=== PATIENT | male | born 1950 | race Caucasian/White ===

== ENCOUNTER 2023-11-30 16:02 | Emergency (ER) | payer OTHER ==
[2023-11-30] MEDS ORDERED: Ipratropium/Albuterol 3 ML NEB ONE ×2 (16:30→20:29)
[2023-11-30 16:53] LABS: #Basophils 0.1 thou/uL (0.0-0.2); #Eosinphils 0.2 thou/uL (0.0-0.7); #Lymphocytes 5.2 thou/uL (1.20-3.40); #Monocytes 0.9 thou/uL (0.11-0.59); #Neutrophils 7.6 thou/uL (1.40-6.50); %Basophils 0.4 % (0.0-1.0); %Eosinophils 1.5 % (0.0-10.0); %Lymphocytes 37.4 % (21.0-51.0); %Monocytes 6.2 % (0.0-10.0); %Neutrophils 54.6 % (42.0-75.0); Hematocrit 42.6 % (42.0-52.0); Hemoglobin 13.6 g/dL (14.0-18.0); Mean Corpuscular HGB CONC 31.9 g/dL (32.0-36.0); Mean Corpuscular Hemoglobin 30.8 pg (27.0-31.0); Mean Corpuscular Volume 96.4 fl (78.0-98.0); Mean Platelet Volume 6.4 fL (7.4-10.4); Platelet Count 190 10x3/uL (130-400); RBC Distribution Width 11.5 % (11.5-14.5); Red Blood Cell (RBC) Count 4.42 mill/uL (4.70-6.10); White Blood Cell (WBC) Count 13.9 10x3/uL (4.8-10.8)
[2023-11-30 17:02] LABS: Bilirubin Negative (Negative); Blood, Urine Negative (Negative); Glucose, Urine (Dipstick) Negative (Negative); Ketone, Urine Trace mg/dL (Negative); Leukocyte Negative (Negative); Nitrite Negative (Negative); Protein, Urine (Dipstick) Negative (Neg-Trace); Specific Gravity, Urine 1.025 (1.005-1.030); Urobilinogen 0.2 mg/dL (Less than 2); pH, Urine 6.5 (5.0-9.0)
[2023-11-30 17:04] LABS: ALT (SGPT) 34 U/L (8-55); AST (SGOT) 32 U/L (5-34); Albumin 3.8 g/dL (3.4-4.8); Alkaline Phosphatase 64 U/L (40-110); Anion Gap 19 mmol/L (10-20); BUN (Urea Nitrogen) 13 mg/dL (8.4-25.7); Bilirubin, Total 1.5 mg/dL (0.2-1.2); Calc. Creatinine Clearance 0 mL/min (70-130); Calcium 9.9 mg/dL (7.8-10.44); Carbon Dioxide 23 mmol/L (23-31); Chloride 103 mmol/L (98-107); Estimated GFR 93; Glucose 126 mg/dL (83-110); Protein, Total 6.8 g/dL (5.8-8.1); Sodium 141 mmol/L (136-145)
[2023-11-30 17:10] LABS: Clarity Hazy (Clear)
[2023-11-30 17:11] LABS: CAUTI Indications for Culture Fever or rigors; Mucous/LPF 2+ LPF (<2+); Squamous Epithelial 0-3 HPF (0-3); Transitional Epithelial 0-3 HPF (None Seen); WBC/HPF 0-3 HPF (0-3)
[2023-11-30 17:12] LABS: Urine Culture Reflex No No
[2023-11-30] MEDS ORDERED: cefTRIAXone (ROCEPHIN) 2 GM VIAL ONE (17:31)
[2023-11-30] MEDS ORDERED: Sodium Chloride 0.9% 100 ML ONE (17:31)
[2023-11-30] MEDS ORDERED: Adenosine 6 mg (2 mL) VIAL ONE (19:03)
[2023-11-30] MEDS ORDERED: Etomidate 40 MG (20 mL) VIAL ONE (19:07)
[2023-11-30] MEDS ORDERED: Benzonatate 100 MG CAP ONE (20:29)
[2023-11-30] MEDS ORDERED: guaiFENesin ER 600 MG TAB ONE (20:30)
[2023-11-30] MEDS ORDERED: methylPREDNISolone Sod Succ/PF 125 MG/2 ML VIAL ONE (20:30)
== END 2023-11-30 22:22 | disposition short-term general hospital (02) ==
LOC: NAV ERS 16:02
DX: J18.9 Pneumonia, unspecified organism (principal); R09.02 Hypoxemia; E78.00 Pure hypercholesterolemia, unspecified; Z79.899 Other long term (current) drug therapy
CPT/HCPCS: 36415; 71046; 80053; 81001; 83605; 85025; 87040; 87070; 87205; 94640; 96365; 96375; J0153; J0696; J2930; J3490; J7620

== ENCOUNTER 2023-12-23 14:24 | Outpatient (CLI) | payer OTHER | END 2023-12-23 14:25 | disposition home or self-care (01) | LOC: NAV RAD 14:24 | PROVIDERS: ATTEND Student in an Organized Health Care Education/Training Program | DX: J18.9 Pneumonia, unspecified organism (principal); R05.3 Chronic cough; J98.8 Other specified respiratory disorders | CPT/HCPCS: 71046 ==